=== PATIENT | male | born 1985 | race Caucasian/White ===

== ENCOUNTER 2024-01-20 13:54 | Emergency (ER) | payer OTHER, SELFPAY ==
[2024-01-20 13:58] VITALS: BP 171/98; PULSE 89; RESP 20; TEMP 36.4; O2SAT 99; BMI 30.4
--- NOTE | 2024-01-20 14:03 | DI.RAD.S_ITS ---
PROCEDURE: XR CHEST 2V INDICATIONS: cough x 2wks r/o PNA TECHNIQUE: 2 views of the chest were acquired. COMPARISON: None. FINDINGS: Surgical changes and devices: None. Lungs and pleura: Lungs are clear. No pleural effusions or pneumothorax. Mediastinum: Mediastinal contours are normal. Heart size is normal. Bones and chest wall: No suspicious bony abnormalities. Soft tissues appear unremarkable. IMPRESSION: No acute pulmonary process. Dictated by: Sandi Meyer M.D. on 01/20/2024 at 14:24 Approved by: Sandi Meyer M.D. on 01/20/2024 at 14:24
[2024-01-20 15:36] LABS: Adenovirus Not Detected (Not Detect); B. parapertussis Not Detected (Not Detecte); Bordetella pertussis Not Detected (Not Detect); Chlamydophila pneumoniae Not Detected (Not Detect); Coronavirus 229E Not Detected (Not Detect); Coronavirus HKU1 Not Detected (Not Detect); Coronavirus NL 63 Not Detected (Not Detect); Coronavirus OC43 Not Detected (Not Detect); Human Metapneumovirus Not Detected (Not Detect); Human Rhinovirus/Enterovirus Not Detected (Not Detect); Influenza A Not Detected (Not Detect); Influenza B Not Detected (Not Detect); Mycoplasma pneumoniae Not Detected (Not Detect); Parainfluenza Virus 1 Not Detected (Not Detect); Parainfluenza Virus 2 Not Detected (Not Detect); Parainfluenza Virus 3 Not Detected (Not Detect); Parainfluenza Virus 4 Not Detected (Not Detect); Respiratory Syncytial Virus Not Detected (Not Detect); SARS- CoV-2 Not Detected (Not Detecte)
--- NOTE | 2024-01-20 15:54 | ED.URI ---
HPI - URI/Sore Throat <Jyoti Cee PA-C - Last Filed: 01/20/24 16:22> General Chief Complaint: Upper Respiratory Symptoms Stated Complaint: COUGH/CONGESTION/SORE THROAT Time Seen by Provider: 01/20/24 14:38 History of Present Illness HPI Narrative: 38-year-old male here today for cough x2 weeks. States he is starting to have a sore throat from the cough is voice is hoarse. He denies any shortness of breath, chest pain, wheezing. No fevers he has no history of asthma or other lung problems. Taking DayQuil and ibuprofen no relief. No history of pneumonia. He was worried that the infection is moving down into his lungs which is why he came in today. He is otherwise healthy with no ongoing medical problems. Related Data Previous Rx's Medication Instructions Recorded benzonatate 200 mg capsule 200 mg PO TID PRN cough #30 caps 01/20/24 Allergies Allergy/AdvReac Type Severity Reaction Status Date / Time PCN (PENICILLIN) Allergy Intermediate HIVE Uncoded 01/17/18 12:29 Review of Systems <Jyoti Cee PA-C - Last Filed: 01/20/24 16:22> Review of Systems Narrative: GENERAL: Denies chills, fatigue, malaise, fever, sweats. HEENT: Denies sinus pain, ear pain, sore throat, difficulty swallowing, dizziness. RESPIRATORY: + cough. Denies dyspnea, wheezing, hemoptysis, sputum. CARDIOVASCULAR: Denies chest pain, palpitations, orthopnea, edema, GASTROINTESTINAL: Denies nausea, vomiting, abdominal pain, diarrhea, constipation, melena. : Denies dysuria, frequency, incontinence, hematuria, urinary retention. MUSCULOSKELETAL: denies weakness, joint pain, or bony pain SKIN: Denies rash, skin lesions, or other NEUROLOGIC: Denies weakness, headache, numbness, change in speech, confusion, seizures, incoordination. PSYCHIATRIC: No concerning psychosocial issues. 12 point review of systems is negative except for those stated above Exam <Jyoti Cee PA-C - Last Filed: 01/20/24 16:22> Narrative Exam Narrative: GENERAL: [38] year old patient appears stated age. Well-developed patient, in mild distress. HEAD: Atraumatic. Normocephalic. EYES: Pupils equal round and reactive. Extraocular motions intact. No scleral icterus. No injection or drainage. ENT: Nose without bleeding, purulent drainage. Throat without erythema, tonsillar hypertrophy or exudate. Airway patent. NECK: Trachea midline. Non tender CARDIOVASCULAR: Regular rate and rhythm without murmurs, gallops, or rubs. RESPIRATORY: Clear to auscultation. Breath sounds equal bilaterally. No wheezes, rales, or rhonchi. NEURO: AOx3. SKIN: No rash or erythema of visible areas Initial Vital Signs Initial Vital Signs: Vital Signs Temperature 97.5 F L 01/20/24 13:58 Pulse Rate 89 01/20/24 13:58 Respiratory Rate 20 01/20/24 13:58 Blood Pressure 171/98 H 01/20/24 13:58 Pulse Oximetry 99 01/20/24 13:58 Oxygen Delivery Method Room Air 01/20/24 13:58 <Megan Claudio DO - Last Filed: 01/21/24 09:35> Initial Vital Signs Initial Vital Signs: Vital Signs Temperature 97.5 F L 01/20/24 13:58 Pulse Rate 89 01/20/24 13:58 Respiratory Rate 20 01/20/24 13:58 Blood Pressure 171/98 H 01/20/24 13:58 Pulse Oximetry 99 01/20/24 13:58 Oxygen Delivery Method Room Air 01/20/24 13:58 Course <Jyoti Cee PA-C - Last Filed: 01/20/24 16:22> Orders Ordered: ED Orders 01/20/24 14:02 Respiratory Panel (Film Array) Stat 01/20/24 14:03 XR chest 2V Stat Vital Signs Vital signs: Vital Signs - 8 hr 01/20/24 13:58 Temperature 97.5 F L Pulse Rate 89 Respiratory Rate 20 Blood Pressure 171/98 H Pulse Oximetry 99 Oxygen Delivery Method Room Air <DO Dain Doyle Last Filed: 01/21/24 09:35> Orders Ordered: ED Orders 01/20/24 14:02 Respiratory Panel (Film Array) Stat 01/20/24 14:03 XR chest 2V Stat Vital Signs Vital signs: Vital Signs - 8 hr 01/20/24 13:58 Temperature 97.5 F L Pulse Rate 89 Respiratory Rate 20 Blood Pressure 171/98 H Pulse Oximetry 99 Oxygen Delivery Method [facility] Air [facility] <Jyoti Cee PA-C - Last Filed: 01/20/24 16:22> Lab Data Labs: Lab Results 01/20/24 Range/Units 14:02 Chlamy pneumoniae PCR Not detected (Not Detect) Adenovirus (PCR) Not detected (Not Detect) B.parapertussis DNA PCR Not detected (Not Detecte) Coronavirus OC43 (PCR) Not detected (Not Detect) Coronavirus HKU1 (PCR) Not detected (Not Detect) Coronavirus 229E (PCR) Not detected (Not Detect) SARS-CoV-2 (PCR) Not detected (Not Detecte) Coronavirus NL63 (PCR) Not detected (Not Detect) Human Metapneumovir PCR Not detected (Not Detect) Influenza Type A (PCR) Not detected (Not Detect) Influenza Type B (PCR) Not detected (Not Detect) M. pneumoniae (PCR) Not detected (Not Detect) Parainfluenza 1 (PCR) Not detected (Not Detect) Parainfluenza 2 (PCR) Not detected (Not Detect) Parainfluenza 3 (PCR) Not detected (Not Detect) Parainfluenza 4 (PCR) Not detected (Not Detect) RSV (PCR) Not detected (Not Detect) Entero/Rhino (PCR) Not detected (Not Detect) Imaging Data Chest x-ray: Radiologist's Impression: [place] [address] XRay Report Signed Patient: Oracio Rockwell MR#: [id number] : 1985 Acct:[id number] Age/Sex: 38 / M Date of Service: 01/20/24 Loc: ED Accession Number: [id number] Procedure: XR chest 2V Ordering Provider: Megan Claudio D.O. PROCEDURE: XR CHEST 2V INDICATIONS: cough x 2wks r/o PNA TECHNIQUE: 2 views of the chest were acquired. COMPARISON: None. FINDINGS: Surgical changes and devices: None. Lungs and pleura: Lungs are clear. No pleural effusions or pneumothorax. Mediastinum: Mediastinal contours are normal. Heart size is normal. Bones and chest wall: No suspicious bony abnormalities. Soft tissues appear unremarkable. IMPRESSION: No acute pulmonary process. Dictated by: Sandi Meyer M.D. on 01/20/2024 at 14:24 Approved by: Sandi Meyer M.D. on 01/20/2024 at 14:24 [facility] Narrative Medical decision making narrative: Patient is stable, nontoxic appearing, in no respiratory distress. No increased work of breathing. Afebrile. Not hypoxic. Lung exam normal. Chest x-ray normal. Viral respiratory panel is negative. Patient is not having any alarming symptoms such as shortness breath, chest pain, hemoptysis. His history and exam were consistent with a viral upper respiratory infection/viral bronchitis. There is no evidence of pneumonia or other bacterial infection. We discussed supportive care options including a humidifier, Claritin, Flonase, cough suppressants. Tessalon Perles were prescribed. We discussed signs and symptoms that would warrant return to the ED. patient is stable for discharge at this time. <Megan Claudio, DO - Last Filed: 01/21/24 09:35> Lab Data Labs: Lab Results 01/20/24 Range/Units 14:02 Chlamy pneumoniae PCR Not detected (Not Detect) Adenovirus (PCR) Not detected (Not Detect) B.parapertussis DNA PCR Not detected (Not Detecte) Coronavirus OC43 (PCR) Not detected (Not Detect) Coronavirus HKU1 (PCR) Not detected (Not Detect) Coronavirus 229E (PCR) Not detected (Not Detect) SARS-CoV-2 (PCR) Not detected (Not Detecte) Coronavirus NL63 (PCR) Not detected (Not Detect) Human Metapneumovir PCR Not detected (Not Detect) Influenza Type A (PCR) Not detected (Not Detect) Influenza Type B (PCR) Not detected (Not Detect) M. pneumoniae (PCR) Not detected (Not Detect) Parainfluenza 1 (PCR) Not detected (Not Detect) Parainfluenza 2 (PCR) Not detected (Not Detect) Parainfluenza 3 (PCR) Not detected (Not Detect) Parainfluenza 4 (PCR) Not detected (Not Detect) RSV (PCR) Not detected (Not Detect) Entero/Rhino (PCR) Not detected (Not Detect) Discharge Plan Departure Patient Disposition: Home Clinical Impression: Upper respiratory infection Qualifiers: URI type: unspecified viral URI Qualified Code(s): J06.9 - Acute upper respiratory infection, unspecified Instructions: DI for Acute Bronchitis, DI for Viral Upper Respiratory Infection -- Adult Activity Restrictions/Additional Instructions: Thank you for choosing us to care for you today. What appears that you have a viral upper respiratory infection which is causing your cough and sore throat. Your chest x-ray is normal and not show any signs of pneumonia or other infection in your lungs. Viruses typically resolve on their own without any specific treatment. No antibiotics are indicated at this time. You have been prescribed a cough medication and you may take this along with Claritin to help with her coughing and postnasal drip. I also recommend a cool mist humidifier by your bed at nighttime. If you develop high fevers, shortness of breath, chest pain please return for re-evaluation. If you do not improve in the next 2 weeks please follow up with your primary care provider to discuss the next step in treating your cough. Prescriptions: New benzonatate 200 mg capsule 200 mg PO TID PRN (Reason: cough) Qty: 30 0RF Referrals: ProviderLatoya [Primary Care Provider] - Stand Alone Forms: Patient Portal/API ED Sign-out <Megan Claudio DO - Last Filed: 01/21/24 09:35> Cosign ED Attending Benedicto Attestation: I was immediately available in the department for consultation.
[2024-01-20 16:09] VITALS: BP 146/93; PULSE 83; RESP 20; O2SAT 98
== END 2024-01-20 16:14 | disposition home or self-care (01) ==
PROVIDERS: Emergency Medicine; Emergency Provider Physician Assistant
DX: J06.9 Acute upper respiratory infection, unspecified (principal); Z20.822 Contact with and (suspected) exposure to COVID-19
CPT/HCPCS: 71046; 87633; 99283

== ENCOUNTER 2024-02-26 11:20 | Day surgery (SDC) | payer OTHER, SELFPAY ==
[2024-02-26 11:45] VITALS: BP 131/88; PULSE 86; RESP 16; TEMP 36.1; O2SAT 97
[2024-02-26] MEDS: LACTATED RINGERS 1,000 ML 84 ML IV (11:58)
--- NOTE | 2024-02-26 13:08 | P.HP_ITS ---
History of Present Illness History of Present Illness Date Patient Seen: 02/26/24 Time Patient Seen: 13:08 Chief complaint: Colonoscopy Narrative: I reviewed the recent clinic note. Oracio is here for a recent spell of diverticulitis and abnormal imaging. He is otherwise at his baseline presently. [facility] Social History Smoking Status: Former smoker Meds Home Medications and Allergies Allergies Allergy/AdvReac Type Severity Reaction Status Date / Time amoxicillin Allergy Verified 02/26/24 11:44 PCN (PENICILLIN) Allergy Intermediate HIVE Uncoded 01/17/18 12:29 Review of Systems Review of Systems ROS: Yes All systems reviewed with the patient and are negative except as otherwise documented Exam Vital Signs (past 8 hours): - 02/26/24 11:45 Temperature 97.0 F L Pulse Rate 86 Respiratory Rate 16 Blood Pressure 131/88 Pulse Oximetry 97 Oxygen Delivery Method Room Air Oxygen Delivery Method Room Air Const General: cooperative HENMT Head: normal to inspection Eyes General: appearance normal, both eyes and all related structures Neck Neck: normal visual inspection Chest Chest: normal inspection of the chest Resp Effort & Inspection: normal respiratory effort Cardio Rate: regular rate GI Inspection: normal to inspection Skin General: no rashes or lesions noted Neuro General: patient alert and patient awake Extrem General: normal to inspection and no pedal edema Psych Appearance: grossly normal Assessment & Plan Assessment & Plan narrative: 38-year-old male with abnormal imaging following a spell of recent diverticulitis. He is here for diagnostic colonoscopy to exclude a neoplastic etiology. No family history of colon cancer. Colonoscopy is pursued today.
--- NOTE | 2024-02-26 13:09 | PM.PREOP ---
Pre-operative Note Interval Note History & Physical reviewed/Exam performed by Physician: Yes Changes to H&P: No ASA Class (for procedural sedation): I
--- NOTE | 2024-02-26 13:29 | PM.OP.COLON ---
Operative Date/Time/Diagnoses Date of procedure: 02/26/24 Time of procedure: 13:30 Pre-op diagnosis: Abnormal imaging Post-op diagnosis: same Procedure & Clinicians Study performed: Colonoscopy Same procedure as scheduled: Yes Indications: Abnormal imaging Surgeon: David Viveros Procedure Notes SCOAP/Timeout: Done Procedure in detail: After the risks and benefits were explained, written and verbal informed consent was obtained. The patient was brought into the procedure room and placed into the left lateral decubitus position. Please see anesthesia note for sedation details. Digital rectal examination was accomplished. The scope was introduced into the patient and advanced under direct visualization to the cecum as identified by the appendiceal orifice and ileocecal valve. The scope was slowly withdrawn to carefully examine the mucosa for any defects or lesions. Comprehensive imaging was accomplished throughout the rectum including the dentate line. The colon was decompressed, the scope was then removed from the patient who tolerated the procedure well. Adult colonoscope Bowel prep adequate Scope withdrawal time: 8 minutes Sedation minutes: 10 Specimen(s): none sent Complications: none Impression: This was a visually normal colonoscopy today. I did not see any evidence of diverticulosis throughout the sigmoid colon. No strictures, polyps, inflammation, or mass lesions. The exam was fairly easy with respect to navigation. The terminal ileum was interrogated and appeared totally normal. Endoscopic diagnosis Visually normal colonoscopy and terminal ileoscopy Post-procedure Plan for aftercare: 1. Continue to follow along in primary care. 2. Repeat colonoscopy for colon cancer screening in 10 years. Disposition: PACU
[2024-02-26 13:32] VITALS: BP 122/85; PULSE 83; RESP 16; TEMP 36.5; O2SAT 98
[2024-02-26 13:37] VITALS: BP 116/78; PULSE 77; RESP 22; O2SAT 98
[2024-02-26 13:41] VITALS: BP 105/68; PULSE 72; RESP 10; TEMP 36.9; O2SAT 100
== END 2024-02-26 14:02 | disposition home or self-care (01) ==
PROVIDERS: Referring Provider Internal Medicine Gastroenterology; Visit Provider Internal Medicine Gastroenterology
PROC: 0DJD8ZZ Inspection of Lower Intestinal Tract, Via Natural or Artificial Opening Endoscopic (ICD-10-PCS; CPT 45378; principal; 2024-02-26 12:30)
DX: R93.3 Abnormal findings on diagnostic imaging of other parts of digestive tract (principal)
CPT/HCPCS: 45378; J2704